=== PATIENT | female | born 1990 | race Caucasian/White ===

== ENCOUNTER 2017-02-15 18:26 | Emergency (ER) | payer BC ==
[2017-02-15 18:36] VITALS: BP 148/78; PULSE 81; TEMP 98.8; BMI 42.0
[2017-02-15 19:42] LABS: BASOPHIL 0.7 % (0-2.0); MCH 24.2 pg (25.7-33.7); MEAN CELL VOLUME 75.8 fl (80-96); MEAN PLT VOLUME 9.2 fl (7.5-11.1); NEUTROPHILS 71.8 % (42.8-82.8); PLATELET COUNT 252 K/MM3 (134-434); RDW 15.3 % (11.6-15.6); WHITE BLOOD COUNT 12.7 K/mm3 (4.0-10.0)
[2017-02-15 19:44] LABS: URINE APPEARANCE SLCLOUDY; URINE BILIRUBIN NEGATIVE (NEGATIVE); URINE BLOOD 3+ (NEGATIVE); URINE COLOR YELLOW; URINE GLUCOSE (UA) NEGATIVE (NEGATIVE); URINE KETONE NEGATIVE (NEGATIVE); URINE LEUK ESTERASE 2+ (NEGATIVE); URINE NITRITE NEGATIVE (NEGATIVE); URINE PROTEIN 1+ (NEGATIVE); URINE UROBILINOGEN NEGATIVE mg/dL (0.2-1.0)
[2017-02-15 19:56] LABS: INR 1.03 (0.82-1.09); PROTHROMBIN TIME (PATIENT) 11.3 SEC (9.98-11.88)
[2017-02-15] MEDS ORDERED: KETOROLAC TROMETHAMINE 60 MG/2 ML VIAL IM ONE (20:26)
--- NOTE | 2017-02-15 20:27 | PDOC ---
History of Present Illness <Lindy Morrell - Last Filed: 02/15/17 21:17> - General History Source: Patient Exam Limitations: No Limitations - History of Present Illness Initial Comments: 02/15/17 20:29 The patient is a 26 year old female (A1), with no significant past medical history, who presents to the emergency department with suprapubic pain and vaginal bleeding since yesterday. The patient reports that she has irregular menstrual cycles and has not had a period in several months. Yesterday, she reports that she began experiencing heavy vaginal bleeding and subsequently, suprapubic pain. The patient describes the abdominal pain as cramping. The patient denies any fevers, chills or recent illnesses. The patient denies any nausea, vomiting, diarrhea or constipation. The patient denies hematuria or dysuria. Allergies: None reported. Past Surgical History: None reported. Social History: Non-smoker. Denies alcohol or drug use. PCP: Dr. Stanford <Loreta Louis - Last Filed: 02/15/17 22:52> - General Chief Complaint: Vaginal Bleeding Stated Complaint: PCP SENT/STOMACH PAIN Time Seen by Provider: 02/15/17 19:01 Past History - Past Medical History Other medical history: none - Reproductive History Is Patient Now?: (?) - Psycho/Social/Smoking Cessation Hx Anxiety: No Suicidal Ideation: No Smoking History: Never smoked Information on smoking cessation initiated: No Hx Alcohol Use: No Drug/Substance Use Hx: No Substance Use Type: None <Lindy Morrell Roseanna - Last Filed: 02/15/17 21:17> <Loreta Louis - Last Filed: 02/15/17 22:52> - Past Medical History Allergies/Adverse Reactions: Allergies Allergy/AdvReac Type Severity Reaction Status Date / Time No Known Allergies Allergy Verified 02/15/17 20:18 Home Medications: Ambulatory Orders Sulfamethoxazole/Trimethoprim [Bactrim Ds -] 1 tab PO BID #14 tablet 02/15/17 Review of Systems - Review of Systems Able to Perform ROS?: Yes Comments:: 02/15/17 20:29 CONSTITUTIONAL: Absent: fever, no chills, no fatigue EYES: Absent: visual changes ENT: Absent: ear pain, no sore throat CARDIOVASCULAR: Absent: chest pain, no palpitations RESPIRATORY: Absent: cough, no SOB GI: Present: +Abdominal pain Absent: no nausea, no vomiting, no constipation, no diarrhea GENITOURINARY: Present: +Vaginal Bleeding Absent: dysuria, no frequency, no hematuria MUSCULOSKELETAL: Absent: back pain, no arthralgia, no myalgia SKIN: Absent: rash NEURO: Absent: headache <Loreta Louis - Last Filed: 02/15/17 22:52> *Physical Exam - Vital Signs Last Vital Signs Temp Pulse Resp BP Pulse Ox 98.8 F 81 18 148/78 100 02/15/17 18:33 02/15/17 18:33 02/15/17 18:33 02/15/17 18:33 02/15/17 18:33 <Lindy Morrell - Last Filed: 02/15/17 21:17> - Vital Signs Last Vital Signs Temp Pulse Resp BP Pulse Ox 98.8 F 81 18 148/78 100 02/15/17 18:33 02/15/17 18:33 02/15/17 18:33 02/15/17 18:33 02/15/17 18:33 - Physical Exam Comments: 02/15/17 20:29 GENERAL: Afebrile. Well-appearing, well-nourished. No apparent distress. HEENT: Normocephalic, atraumatic. PERRL, EOM intact. CARDIOVASCULAR: Normal S1, S2. Regular rate and rhythm. PULMONARY: Clear to auscultation bilaterally. ABDOMEN: Suprapubic tenderness to palpation. No rebound. No guarding. Soft, non- distended. EXTREMITIES: Normal ROM in all four extremities. No gross deformities. SKIN: Warm, dry. No rash. NEUROLOGICAL: No focal neurological deficits. <Loreta Louis - Last Filed: 02/15/17 22:52> ED Treatment Course - LABORATORY CBC & Chemistry Diagram: 02/15/17 19:33 - ADDITIONAL ORDERS Additional order review: Laboratory Results 02/15/17 02/15/17 19:33 19:33 INR 1.03 Urine Color Yellow Urine Appearance Slcloudy Urine pH 7.0 Urine Protein 1+ H Urine Glucose (UA) Negative Urine Ketones Negative Urine Blood 3+ H Urine Nitrite Negative Urine Bilirubin Negative Urine Urobilinogen Negative Ur Leukocyte Esterase 2+ H Urine HCG, Qual Negative 02/15/17 19:33 RBC 4.92 MCV 75.8 L MCHC 32.0 RDW 15.3 MPV 9.2 Neutrophils % 71.8 Lymphocytes % 22.4 Monocytes % 4.1 Eosinophils % 1.0 Basophils % 0.7 <Lindy Morrell - Last Filed: 02/15/17 21:17> - LABORATORY CBC & Chemistry Diagram: 02/15/17 19:33 - ADDITIONAL ORDERS Additional order review: Laboratory Results 02/15/17 02/15/17 19:33 19:33 INR 1.03 Urine Color Yellow Urine Appearance Slcloudy Urine pH 7.0 Urine Protein 1+ H Urine Glucose (UA) Negative Urine Ketones Negative Urine Blood 3+ H Urine Nitrite Negative Urine Bilirubin Negative Urine Urobilinogen Negative Ur Leukocyte Esterase 2+ H Urine HCG, Qual Negative 02/15/17 19:33 RBC 4.92 MCV 75.8 L MCHC 32.0 RDW 15.3 MPV 9.2 Neutrophils % 71.8 Lymphocytes % 22.4 Monocytes % 4.1 Eosinophils % 1.0 Basophils % 0.7 <Loreta Louis - Last Filed: 02/15/17 22:52> *DC/Admit/Observation/Transfer <Lindy Morrell - Last Filed: 02/15/17 21:17> - Attestations Scribe Attestion: 02/15/17 20:31 Documentation prepared by Loreta Louis, acting as medical consultant for Lindy Morrell MD. <Loreta Louis - Last Filed: 02/15/17 22:52> Diagnosis at time of Disposition: Dysfunctional uterine bleeding UTI (urinary tract infection) Qualifiers: Urinary tract infection type: acute cystitis Hematuria presence: with hematuria Qualified Code(s): N30.01 - Acute cystitis with hematuria - Discharge Dispostion Disposition: HOME Condition at time of disposition: Stable - Prescriptions Prescriptions: Sulfamethoxazole/Trimethoprim [Bactrim Ds -] 1 tab PO BID #14 tablet - Referrals Referrals: Yasmine Stanford [Primary Care Provider] - - Patient Instructions Printed Discharge Instructions: DI for Urinary Tract Infection (UTI) Additional Instructions: 26-year-old female. Past medical history dysfunctional uterine bleeding presents with suprapubic discomfort. She is found to have urinary tract infection and will be started on antibiotics. She does not have any significant anemia. She does not have chest pain or shortness of breath and she is not significantly tachycardic. Plan patient discharged on Bactrim and to follow-up with her [employer]
[2017-02-15] MEDS ORDERED: KETOROLAC TROMETHAMINE 60 MG/2 ML VIAL ONE (20:40)
[2017-02-15 20:48] LABS: CALCIUM OXALATE CRYSTALS MANY /hpf (NONE SEEN); URINE BACTERIA RARE /hpf (NONE SEEN); URINE RBC 378 /hpf (0-3); URINE WBC 110 /hpf (3-5)
[2017-02-15] MEDS ORDERED: SULFAMETHOXAZOLE/TRIMETHOPRIM 800MG/160MG D.S. TABLET ONE (21:21)
[2017-02-15] MEDS ORDERED: SULFAMETHOXAZOLE/TRIMETHOPRIM 800MG/160MG D.S. TABLET PO ONE (21:22)
== END 2017-02-15 21:31 | disposition home or self-care (01) ==
LOC: JER 18:26
PROC: 3E0233Z Introduction of Anti-inflammatory into Muscle, Percutaneous Approach (ICD-10-PCS; principal; 2017-02-15)
DX: N30.01 Acute cystitis with hematuria (principal)
CPT/HCPCS: 36415; 81003; 81015; 84703; 85025; 85610; 86850; 86900; 86901; 87086; 99282-25